=== PATIENT | female | born 1995 | race Caucasian/White ===

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

== ENCOUNTER 2017-02-28 12:32 | Emergency (ER) | payer BC ==
[2017-02-28 14:38] VITALS: BP 128/78
--- NOTE | 2017-02-28 15:10 | UC ---
Throat Pain/Nasal Franky HPI - HPI Summary HPI Summary: 21 year old female presents with complains of losing her voice and copious amounts of mucous. - History of Current Complaint Chief Complaint: UCGeneralIllness Stated Complaint: LOSING VOICE Time Seen by Provider: 02/28/17 15:09 Hx Obtained From: Patient Hx Last Menstrual Period: PRESENT Onset/Duration: Sudden Onset Severity: Moderate Pain Scale Used: 0-10 Numeric - 5 Cough: Nonproductive Associated Signs & Symptoms: Positive: Negative - Allergies/Home Medications Allergies/Adverse Reactions: Allergies Allergy/AdvReac Type Severity Reaction Status Date / Time No Known Allergies Allergy Verified 02/28/17 14:38 PMH/Surg Hx/FS Hx/Imm Hx Previously Healthy: Yes Other History Of: Negative For: HIV, Hepatitis B, Hepatitis C, Anticoagulant Therapy - Surgical History Surgical History: Yes Surgery Procedure, Year, and Place: Right Knee Arthroscopy Meniscus, 2015, [place] - Family History Known Family History: Positive: Hypertension, Diabetes Negative: Cardiac Disease - Social History Alcohol Use: None Substance Use Type: None Smoking Status (MU): Never Smoked Tobacco - Immunization History Most Recent Influenza Vaccination: NOT CURRENT Vaccination Up to Date: Yes Review of Systems Constitutional: Negative Skin: Negative Eyes: Negative ENT: Sore Throat, Nasal Discharge, Sinus Congestion, Sinus Pain/Tenderness Respiratory: Negative Cardiovascular: Negative Gastrointestinal: Negative Genitourinary: Negative Motor: Negative Neurovascular: Negative Musculoskeletal: Negative Neurological: Negative Psychological: Negative All Other Systems Reviewed And Are Negative: Yes Physical Exam Triage Information Reviewed: Yes Appearance: Well-Appearing Vital Signs: Initial Vital Signs Temp 36.9 C 02/28/17 14:35 Pulse 81 02/28/17 14:35 Resp 18 02/28/17 14:35 BP 128/78 02/28/17 14:35 Pulse Ox 100 02/28/17 14:35 Vital Signs Reviewed: Yes Eye Exam: Normal ENT: Positive: Pharyngeal erythema, Nasal congestion, Nasal drainage Dental Exam: Normal Neck exam: Normal Neck: Positive: 1 Respiratory Exam: Normal Cardiovascular Exam: Normal Abdominal Exam: Normal Musculoskeletal Exam: Normal Neurological Exam: Normal Psychological Exam: Normal Skin Exam: Normal Throat Pain/Nasal Course/Dx - Differential Dx/Diagnosis Provider Diagnoses: tonsillar swelling. post nasal drip Discharge - Discharge Plan Condition: Stable Disposition: HOME Referrals: Danielle Corbin MD [Primary Care Provider] -
== END 2017-02-28 16:13 | disposition home or self-care (01) ==
LOC: UCCORT 12:32
DX: J35.1 Hypertrophy of tonsils (principal); R09.82 Postnasal drip
CPT/HCPCS: 87651; 99212; G0463

== ENCOUNTER 2018-01-21 15:49 | Emergency (ER) | payer BC ==
[2018-01-21 17:26] VITALS: BP 136/74
[2018-01-21] MEDS ORDERED: Albuterol HFA INHALER* 8 gm MDI INH ONE (18:12)
--- NOTE | 2018-01-21 18:12 | UC ---
Throat Pain/Nasal Franky HPI - HPI Summary HPI Summary: sore thraot pain for 1 day, has a cough and is short of breath with activity - History of Current Complaint Chief Complaint: UCGeneralIllness Stated Complaint: SORE THROAT Time Seen by Provider: 01/21/18 17:06 Hx Obtained From: Patient Hx Last Menstrual Period: 12/28/17 Onset/Duration: Sudden Onset, Lasting Days Severity: Moderate Pain Intensity: 4 Cough: Nonproductive Associated Signs & Symptoms: Positive: Dysphagia, Wheezing - Allergies/Home Medications Allergies/Adverse Reactions: Allergies Allergy/AdvReac Type Severity Reaction Status Date / Time No Known Allergies Allergy Verified 01/21/18 17:26 PMH/Surg Hx/FS Hx/Imm Hx Previously Healthy: Yes Other History Of: Negative For: HIV, Hepatitis B, Hepatitis C, Anticoagulant Therapy - Surgical History Surgical History: Yes Surgery Procedure, Year, and Place: Right Knee Arthroscopy Meniscus, 2015, [place] - Family History Known Family History: Positive: Hypertension, Diabetes Negative: Cardiac Disease - Social History Alcohol Use: None Substance Use Type: None Smoking Status (MU): Never Smoked Tobacco - Immunization History Most Recent Influenza Vaccination: NOT CURRENT Vaccination Up to Date: Yes Review of Systems Constitutional: Negative Skin: Negative Eyes: Negative ENT: Sore Throat Respiratory: Shortness Of Breath Cardiovascular: Negative Gastrointestinal: Negative Genitourinary: Negative Motor: Negative Neurovascular: Negative Musculoskeletal: Negative Neurological: Negative Psychological: Negative Is Patient Immunocompromised?: No All Other Systems Reviewed And Are Negative: Yes Physical Exam Triage Information Reviewed: Yes Appearance: Well-Appearing, Well-Nourished, Pain Distress Vital Signs: Initial Vital Signs Temp 98.4 F 01/21/18 17:22 Pulse 100 01/21/18 17:22 Resp 18 01/21/18 17:22 BP 136/74 01/21/18 17:22 Pulse Ox 100 01/21/18 17:22 Vital Signs Reviewed: Yes Eye Exam: Normal ENT: Positive: Pharyngeal erythema - with PND, TM bulging Dental Exam: Normal Neck exam: Normal Neck: Positive: Supple, Nontender, No Lymphadenopathy Respiratory Exam: Normal Respiratory: Positive: Chest non-tender, Decreased breath sounds, Wheezing, Inspiration Cardiovascular Exam: Normal Cardiovascular: Positive: RRR, No Murmur Abdominal Exam: Normal Abdomen Description: Positive: Nontender, No Organomegaly, Soft Bowel Sounds: Positive: Present Musculoskeletal Exam: Normal Neurological Exam: Normal Psychological Exam: Normal Skin Exam: Normal Throat Pain/Nasal Course/Dx - Course Course Of Treatment: hx obtained, exam performed ,meds reviewed, rapid strep negative. educated on treatment - Differential Dx/Diagnosis Differential Diagnosis/HQI/PQRI: Otitis Media, Pharyngitis, Sinusitis, URI Provider Diagnoses: bronchospasm. sinusitis Discharge - Sign-Out/Discharge Documenting (check all that apply): Patient Departure All imaging exams completed and their final reports reviewed: Yes - Discharge Plan Condition: Stable Disposition: HOME Patient Education Materials: Acute Bronchitis (ED) Referrals: Danielle Corbin MD [Primary Care Provider] - Additional Instructions: 1. take the medication as prescribed. 2. get rest and increase plenty of fluid. 3. get an OTC generic Zyrtec or Claritin to take daily 4. Use the inhaler as needed. - Billing Disposition and Condition Condition: STABLE Disposition: Home
== END 2018-01-21 18:26 | disposition home or self-care (01) ==
LOC: UCCORT 15:49
DX: J98.01 Acute bronchospasm (principal); J32.9 Chronic sinusitis, unspecified
CPT/HCPCS: 87651; 99212; A9270-GY; G0463

== ENCOUNTER 2018-05-23 17:54 | Emergency (ER) | payer BC ==
[2018-05-23 20:35] VITALS: BP 124/71
--- NOTE | 2018-05-23 20:35 | UC ---
Ear Complaint HPI - HPI Summary HPI Summary: Progressive right ear pain and fullness, congestion, pnd no fever, chill, no rash Denies sob, mild cough + sick contact. No OTC meds taken. + po, decreased appetite. not . medications reviewed this visit - History of Current Complaint Stated Complaint: RT EAR COMPLAINT Time Seen by Provider: 05/23/18 20:35 Hx Obtained From: Patient Hx Last Menstrual Period: 12/28/17 - Allergies/Home Medications Allergies/Adverse Reactions: Allergies Allergy/AdvReac Type Severity Reaction Status Date / Time No Known Allergies Allergy Verified 05/23/18 20:35 Home Medications: Home Medications Ethinyl Estradiol/Drospirenone [Sherine 28 Tablet] 1 each PO DAILY 05/23/18 [ History Confirmed 05/23/18] PMH/Surg Hx/FS Hx/Imm Hx Previously Healthy: Yes Other History Of: Negative For: HIV, Hepatitis B, Hepatitis C, Anticoagulant Therapy - Surgical History Surgical History: Yes Surgery Procedure, Year, and Place: Right Knee Arthroscopy Meniscus, 2015, [place] - Family History Known Family History: Positive: Hypertension, Diabetes Negative: Cardiac Disease - Social History Occupation: Student Lives: Dormitory/Roommates Alcohol Use: None Substance Use Type: None Smoking Status (MU): Never Smoked Tobacco - Immunization History Most Recent Influenza Vaccination: NOT CURRENT Vaccination Up to Date: Yes Review of Systems All Other Systems Reviewed And Are Negative: Yes ENT: Positive: Ear Ache, Sinus Congestion, Sinus Pain/Tenderness Respiratory: Positive: Cough Physical Exam - Summary Physical Exam Summary: Vital Signs Reviewed: Yes A+Ox3, no distress Eyes: Conjunctiva Clear, ANJANA. EOM intact and full ENT: Hearing grossly normal right TM ++ fluid, erythema, buldgel left TM mild erythema turbinates inflammed and boggy. + PND, mmoist, uvula midline, no exudate, no erythema Neck: Positive: Supple Respiratory: Positive: No respiratory distress, No accessory muscle use + CTA throughout no w/r Cardiovascular: RRR nl s1, s2 no m/r CBT <2 sec abd soft + BS nt/nd no guarding, no distension Musculoskeletal Exam: BALDWIN x 4 without difficulty Strength Intact, ROM Intact Neurological: Positive: Alert, + sensation throughout Psychological: Positive: Normal Response To Family Skin: Positive: no rash, no ecchymosis Ear Complaint Course/Dx - Course Course Of Treatment: progressive sinus discomfort and right ear pain. VSS. pt with right OM and rhinosinusitis on exam. Rx abx, flonase. motrin/apa. decongestant. secretion precaution. humidify air. declined offer to talk to parent - Differential Dx/Diagnosis Provider Diagnosis: Otitis media, Sinusitis Discharge - Sign-Out/Discharge Documenting (check all that apply): Patient Departure All imaging exams completed and their final reports reviewed: No Studies - Discharge Plan Condition: Stable Disposition: HOME Prescriptions: Amoxicillin/Clavulanate TAB* [Augmentin TAB 875*] 875 mg PO BID #19 tab Fluconazole [Diflucan 150 MG (NF)] 150 mg PO ONCE PRN #1 tab PRN Reason: vaginal yeast infection Fluticasone NASAL SPRAY 50MCG* [Flonase NASAL SPRAY 50MCG*] 2 spray BOTH NARES DAILY #1 btl Patient Education Materials: Ear Infection (ED), Rhinosinusitis (ED) Referrals: Saloni Wise MD [Primary Care Provider] - Additional Instructions: - Stay well hydrated. Drink plenty of non-alcoholic, non-caffinated beverages. - Alternate ibuprofen (Advil, Motrin) 600mg and Tylenol every 3 hours for pain or fever. Take with food. Do NOT take for more than 4-5 days. - These infections are spread by secretions - do NOT share eating or drinking utensils - clean items you share with other people such as cell phones, computer mouse, TV remote, computer tablets,etc. Once you have been antibiotics for 2 days, change your toothbrush and your pillowcase. - get plenty of restful sleep - humidify the air in the room where you sleep - boil water, run a hot steam shower, vaporizer, cups of water by heat register - okay to take over the counter decongestant and cough medication - use nasal spray as prescribed - you have been prescribed diflucan - okay to take at the end of your antibiotics if you develop a vaginal yeast infection - contact your doctor or return with questions or concerns - Billing Disposition and Condition Condition: STABLE Disposition: Home
[2018-05-23] MEDS ORDERED: Amoxicillin/Clavulanate TAB* 875 MG PO ONE (20:55)
== END 2018-05-23 21:04 | disposition home or self-care (01) ==
LOC: UCCORT 17:54
DX: H66.91 Otitis media, unspecified, right ear (principal); J32.9 Chronic sinusitis, unspecified
CPT/HCPCS: 99212; A9270-GY; G0463

== ENCOUNTER 2018-11-30 17:09 | Emergency (ER) | payer BC ==
[2018-11-30 17:54] VITALS: BP 122/70
--- NOTE | 2018-11-30 17:57 | UC ---
Ear Complaint HPI - HPI Summary HPI Summary: 22-year-old female with bilateral earache and mild sore throat over the past 2 or 3 days. She denies any fever or chills. - History of Current Complaint Chief Complaint: UCRespiratory Stated Complaint: ST/EAR PAIN Time Seen by Provider: 11/30/18 17:45 Hx Obtained From: Patient Hx Last Menstrual Period: 11/12/18 ?: No Onset/Duration: Gradual Onset Severity Initially: Mild Severity Currently: Mild Pain Intensity: 7 Aggravating Factors: Nothing Alleviating Factors: Nothing Associated Signs/Symptoms: Positive: URI Symptoms - Allergies/Home Medications Allergies/Adverse Reactions: Allergies Allergy/AdvReac Type Severity Reaction Status Date / Time No Known Allergies Allergy Verified 11/30/18 17:51 Home Medications: Home Medications Etonogest/Eth.estradiol (Nf) [Nuvaring Vaginal Ring] 1 each VAGINAL .SEE COMMENTS 11/30/18 [History Confirmed 11/30/18] PMH/Surg Hx/FS Hx/Imm Hx Previously Healthy: Yes Other History Of: Negative For: HIV, Hepatitis B, Hepatitis C, Anticoagulant Therapy - Surgical History Surgical History: Yes Surgery Procedure, Year, and Place: Right Knee Arthroscopy Meniscus, 2016, [place] - Family History Known Family History: Positive: Hypertension, Diabetes Negative: Cardiac Disease - Social History Alcohol Use: None Substance Use Type: None Smoking Status (MU): Never Smoked Tobacco - Immunization History Most Recent Influenza Vaccination: NOT CURRENT Vaccination Up to Date: Yes Review of Systems All Other Systems Reviewed And Are Negative: Yes ENT: Positive: Sore Throat, Ear Ache, Nasal Discharge Is Patient Immunocompromised?: No Physical Exam Triage Information Reviewed: Yes Appearance: Well-Appearing, No Pain Distress, Well-Nourished Vital Signs: Initial Vital Signs Temp 99.2 F 11/30/18 17:49 Pulse 106 11/30/18 17:49 Resp 16 11/30/18 17:49 BP 122/70 11/30/18 17:49 Pulse Ox 100 11/30/18 17:49 Vital Signs Reviewed: Yes Eyes: Positive: Conjunctiva Clear ENT: Positive: Hearing grossly normal, Pharyngeal erythema - Minimal pharyngeal erythema, no exudate, uvula midline., Nasal drainage, TMs normal, Uvula midline Neck: Positive: Supple, Nontender, Enlarged Nodes @ - Mild left tonsillar lymph node enlargement. Respiratory: Positive: Lungs clear, Normal breath sounds, No respiratory distress, No accessory muscle use Cardiovascular: Positive: RRR, No Murmur, Pulses Normal, Brisk Capillary Refill Musculoskeletal Exam: Normal Neurological Exam: Normal Psychological Exam: Normal Skin Exam: Normal Ear Complaint Course/Dx - Course Course Of Treatment: Rapid strep test was negative. - Differential Dx/Diagnosis Provider Diagnosis: Pharyngitis Discharge - Sign-Out/Discharge Documenting (check all that apply): Patient Departure All imaging exams completed and their final reports reviewed: No Studies - Discharge Plan Condition: Good Disposition: HOME Patient Education Materials: Pharyngitis (ED) Referrals: Saloni Wise MD [Primary Care Provider] - Additional Instructions: Increase fluids, may take ibuprofen every 8 hours for pain, warm saltwater gargles, throat lozenges for comfort. Definite follow-up with your primary care provider in 3 or 4 days if no improvement. - Billing Disposition and Condition Condition: GOOD Disposition: Home
== END 2018-11-30 18:21 | disposition home or self-care (01) ==
LOC: UCCORT 17:09
DX: J06.9 Acute upper respiratory infection, unspecified (principal)
CPT/HCPCS: 87651; 99211; G0463

== ENCOUNTER 2019-01-21 17:40 | Emergency (ER) | payer BC ==
--- OUTSIDE RECORDS SUMMARY | 2019-01-21 17:47 | XMS REPORT | Continuity of Care Document ---
:1995 External Reference #:[id number] Author Name Saloni Wise MD, PHD Address [address] [place] [address], [address] [phone] Care Team Providers Name Role Phone Saloni Wise MD, PHD - Family Care Team Information Puller Through [phone] Medicine Problems Active Problems Provider Date Plica syndrome, right knee Hunter Petty M.D. Onset: 05/22/2015 Acne Saloni Wise MD, PHD Onset: 02/23/2018 Dysmenorrhea Saloni Wise MD, PHD Onset: 02/23/2018 Obesity Saloni Wise MD, PHD Onset: 02/23/2018 Social History Type Date Description Comments Sex Unknown Tobacco Use Start: Unknown Never Smoked Cigarettes Smoking Status Reviewed: 01/02/19 Never Smoked Cigarettes ETOH Use Never used alcohol Tobacco Use Start: Unknown Patient has never smoked Allergies, Adverse Reactions, Alerts Description No Known Drug Allergies Medications Active Medications SIG Qnty Indications Ordering Provider Date D3 Maximum Strength 1 cap by mouth 90caps F41.9 Saloni Wise, 2018 every day with , PHD 5000Unit Capsules food B12 Fast Dissolve 1 tab by mouth 90tabs F41.9 Saloni Wise, 01/02/2019 every day , PHD 5000mcg Tablets Dispers Nac 600 1 cap by mouth 90caps F41.9 Saloni Wise, 01/02/2019 600mg three times a day , PHD Capsules after meals Buspirone HCL 1 tab by mouth 90tabs F41.9 Saloni Wise, 01/02/2019 10mg three times a day , PHD Tablets after meals as needed for anxiety. Nuvaring use 1 ring 3units L70.0 Saloni Wise, 10/03/2018 vaginally every MD PHD 0.12-0.015mg/24HR month Ring Z30.09 N94.6 Aczone 7.5% Gel Unknown Immunizations CPT Code Status Date Vaccine Lot # [id number] Given 06/23/2015 Meningococcal Conjugate Vaccine Serogroups For [id number] Intramuscular Use 38717 Given 06/23/2015 Gardasil [id number] 31323 Given 12/10/2002 Poliovirus Vaccine Subcutaneous Or Intramuscular 93757 Given 12/10/2002 MMR Vaccine, Live, For Subcutaneous Use 06390 Given 12/10/2002 DTaP Vaccine Younger Than 7 20360 Given 12/01/2000 Pneumococcal Conjugate Vaccine 7 Valent For Intramuscular Use 24261 Given 04/21/2000 Varicella (Chicken Pox) Vaccine 00127 Given 10/06/1999 DTaP Vaccine Younger Than 7 32252 Given 10/06/1999 MMR Vaccine, Live, For Subcutaneous Use 27609 Given 10/06/1999 Poliovirus Vaccine Oral 98672 Given 10/06/1999 Hepatitis B & Hib Vaccine 04756 Given 06/30/1998 Hepatitis B Vaccine Pediatric/Adolescent 94347 Given 06/30/1998 DTP Toxoids & Hib Vaccine 44659 Given 04/30/1998 DTaP & Hib Vaccine 76012 Given 04/30/1998 Poliovirus Vaccine Oral 52494 Given 02/17/1998 Hepatitis B Vaccine Pediatric/Adolescent 54158 Given 02/17/1998 DTaP & Hib Vaccine 30366 Given 02/17/1998 Poliovirus Vaccine Oral Vital Signs Date Vital Result Comment 01/02/2019 11:52am BP Systolic Sitting Right Arm 128 mmHg BP Diastolic Sitting Right Arm 84 mmHg Body Temperature 98.9 F Heart Rate 97 /min Respiratory Rate 18 /min Height 65 inches 5'5" Weight 213.00 lb BMI (Body Mass Index) 35.4 kg/m2 BSA (Body Surface Area) 2.03 m2 [place] body weight in kilograms 57 kg O2 % BldC Oximetry 99 % 09/15/2018 10:44am BP Systolic 126 mmHg BP Diastolic 87 mmHg Body Temperature 98.5 F Heart Rate 87 /min Respiratory Rate 18 /min Height 65 inches 5'5" Weight 215.00 lb BMI (Body Mass Index) 35.8 kg/m2 BSA (Body Surface Area) 2.04 m2 [place] body weight in kilograms 57 kg O2 % BldC Oximetry 98 % Results Test Date Facility Test Result H/L Range Note Laboratory test [facility] Laboratory Rapid Strep Negative Negative 1 finding 9 [phone] Molecular Laboratory test [facility] Thyroid Stim 2.49 uIU/mL Normal 0.30-4.20 2 finding [address] [place] [address] [phone] Free T4 1.11 ng/dL Normal 0.76-1.46 CBC W/Automated 09/15/2018 [facility] White Blood 7.4 K/uL Normal 3.1-10.[address] [place] [address] [phone] Red Blood Count 4.92 M/uL Normal 3.90-5.40 Hemoglobin 14.9 gm/dL Normal 11.6-15.8 Hematocrit 43.4 % Normal 36.0-46.1 Mean Cell Volume 88.2 fl Normal 80.9-99.0 Mean Corpuscular HGB 30.3 pg Normal 25.9-32.7 Mean Corpuscular HGB Conc 34.3 g/dL Normal 30.8-34.3 Platelet Count 349 K/uL Normal 155-360 Red Cell Distri Width SD 38.8 fl Normal 36-47 Red Cell Distri Width %CV 12.0 % Normal 11.7-14.4 Mean Platelet Volume 10.6 fl Normal 8.9-12.4 Neut% 68.5 % High 28.0-68.0 Lymph % 23.8 % Normal 20.0-42.0 [place] % 5.1 % Normal 4.3-13.2 Eo% 1.7 % Normal 0.0-6.6 Bas% 0.5 % Normal 0.0-1.1 Immature Grans 0.4 % Normal 0.0-5.0 NRBC % 0.0 /100WBC < 10/ 100 WBC Neut# 5.09 K/uL Normal 1.8-7.0 Lymph # 1.77 K/uL Normal 1.0-4.0 [place] # 0.38 K/uL Normal 0.3-0.9 Eos # 0.13 K/uL Normal 0.0-0.5 Baso # 0.04 K/uL Normal 0.0-0.1 Immature Grans Absolute 0.03 K/uL NRBC # 0.00 K/uL Comprehensive Metabolic 09/15/2018 [facility] Glucose 68 mg/dL Low 74-[address] [place], [place] [id number] [phone] BUN 9 mg/dL Normal 7-18 Creatinine 0.9 mg/dL Normal 0.6-1.3 Glom Filtration Rate, Estimate >60 mL/min >60 If >60 mL/min >60 3 BUN/Creat 10.0 ratio Sodium 138 mmol/L Normal 136-145 Potassium 4.2 mmol/L Normal 3.5-5.1 Chloride 106 mmol/L Normal 98-107 Carbon Dioxide 23 mmol/L Normal 21-32 Anion Gap 9 mEq/L Normal 8-16 Calcium 9.5 mg/dL Normal 8.5-10.1 Total Protein 7.7 g/dL Normal 6.4-8.2 Albumin 3.8 g/dL Normal 3.4-5.0 Globulin 3.9 g/dL Normal 1.9-4.3 Alb/Glob 1.0 ratio Bilirubin,Total 0.5 mg/dL Normal 0.2-1.0 Sgot/Ast 22 U/L Normal 15-37 SGPT/Alt 36 U/L Normal 12-78 Alkaline Phosphatase 37 U/L Low 45-117 Laboratory test 09/15/2018 [facility] Sedimentation 7 mm/hr Normal 2-40 [address] Rate [place], [place] [id number] [phone] Glycohemoglobin 09/15/2018 [facility] Glycohemoglobin 5.1 % Normal 4.2-6. [address] (A1c) 3 [place], [place] [id number] [phone] eAG 100 mg/dL 1 Auto Brake Technician: [id number] N94.6, E66.9, K59.00, Z83.3 3 Note: Persistent reduction for 3 months or more in an eGFR <60 mL/min/1.73 m2 defines CKD. Patients with eGFR values >/=60 mL/min/1.73 m2 may also have CKD if evidence of persistent proteinuria is present. The original MDRD equation for estimated GFR is not valid for patients less than 18 years of age. Additional information may be found at www.kdoqi.org. 4 This result was obtained with an ESR method that is not based on the standard Westergren Method. When comparing results obtained from the traditional Westergren ESR and this method it is important to refer to the reference range for each method. Method: Capillary Photometry 5 Elevated levels of HbA1c suggest the need for more aggressive treatment of glycemia. The [place] [employer] recommends that a primary goal of therapy should be a HbA1c of <7% and that physicians should re-evaluate the treatment regimen in patients with HbA1c values consistently >8%. Procedures Description No Information Available Medical Devices Description No Information Available Encounters Type Date Location Provider Dx Diagnosis Office Visit 01/02/2019 Family Medicine Saloni Wise, F41.9 Anxiety disorder, 11:45a Paolo Chawla MD, PHD unspecified F41.0 Panic disorder [episodic paroxysmal anxiety] F34.1 Dysthymic disorder E66.9 Obesity, unspecified Office Visit 09/15/2018 10:30a Family Jorge Wise N94.6 Dysmenorrhea, Paolo Guallpa MD, unspecified PHD E66.9 Obesity, unspecified K59.00 Constipation, unspecified L60.3 Nail dystrophy Assessments Date Code Description Provider 01/02/2019 F41.9 Anxiety disorder, unspecified Saloni Wise MD, PHD 01/02/2019 F41.0 Panic disorder [episodic paroxysmal Saloni Wise MD, PHD anxiety] 01/02/2019 F34.1 Dysthymic disorder Saloni Wise MD, PHD 01/02/2019 E66.9 Obesity, unspecified Saloni Wise MD, PHD 09/15/2018 N94.6 Dysmenorrhea, unspecified Saloni Wise MD, PHD 09/15/2018 E66.9 Obesity, unspecified Saloni Wise MD, PHD 09/15/2018 K59.00 Constipation Saloni Wise MD, PHD 09/15/2018 L60.3 O/E - nails brittle Saloni Wise MD, PHD Plan of Treatment Future Appointment(s):02/02/2019 2:00 pm - [facility] PHD at [facility]01/02/2019 - Saloni Wise MD, PHDF41.9 Anxiety disorder, unspecifiedNew Medication:D3 Maximum Strength 5000 Unit - 1 cap by mouth every day with foodB12 Fast Dissolve 5000 mcg - 1 tab by mouth every dayNac 600 600 mg - 1 cap by mouth three times a day after mealsBuspirone HCL 10 mg - 1 tab by mouth three times a day after meals as needed for anxiety.Comments:To help lesson mood and anxiety with neutraceuticals - long-term, will take weeks to months to show an effect often: Vitamin D - likely deficient due to sanchez effect in [place]. Implicated in osteoporosis, osteopenia, fatigue, increased risk of diabetes, and depression/seasonal affective disorder. Recommend you take 4000 to 5000 IU of Vitamin D3 daily. Can check vitamin D25 level - takes year+ to replace deficiency. Can get capsule or gummy over the counter. Metamora 3 - essential fatty acid has a mild moodstabilizing effect. Good supplement for kids and aids brain development. Increases good cholesterol and helps clean plaque out of arteries, also has an anti-inflammatory effect for joints, skin, etc. recommend 1000mg of DHA +EPA daily - capsule or gummy over the counter. N- acetyl Cysteine - current studies show a an anti-agitation, improved clarity of thought effect. Biologically seems to reduce inflammation in nervous system. Studies show 1800mg to 2400mg daily safe. Improvements start at 3 weeks, continue to improve at 12 weeks of taking.Follow up:4 week follow up or sooner if needed. Call anytime for follow upF41.0 Panic disorder [episodic paroxysmal anxiety]Referral:No Doctor SvlukauwF60.1 Dysthymic disorderComments: Gastroenterology. 2017 Nov;153(2):448-459.e8. doi: 10.1053/ j.gastro.2017.05.003. Epub 2016August 20.Probiotic Bifidobacterium longum [id number] Reduces Depression Scores and Alters Brain Activity: A Second Officer Study in Patients With Irritable Bowel Syndrome.Bill MI1, Rodriguez GB2, Arie K2, Jody A1, Sangita C1, Juwan JT1, Rupesh FP3, Guillermina O3, Ranjit C1, Risun A2, John J2, Cordell C2, Grullon G1,Yonas M1, Alejandro AC4, Justyn J5, Katy B6, Holly G6, Raman MG1, Bob SM1, Sherly P1, Ishmael P7.Author informationAbstractBACKGROUND & AIMS: Probiotics can reduce symptoms of irritable bowel syndrome (IBS), but little is known about their effects on psychiatric comorbidities. We performed a prospective study to evaluate the effects of Bifidobacterium longum [id number] (BL) on anxiety and depression in patients with IBS.METHODS: We performed a randomized, double-blind, placebo- controlled study of 44 adults with IBS and diarrhea or a mixed-stool pattern ( based on Conner III criteria) and mild to moderate anxiety and/or depression ( based on the Hospital Anxiety and Depression scale) at [facility] in [place], from June 2010 to August 2013. At the screening visit, clinical history and symptoms were assessed and blood samples were collected. Patients were then randomly assigned to groups and given daily BL (n = 22) or placebo (n = 22) for 6 weeks. At weeks 0, 6, and 10, we determined patients' levels of anxiety and depression, IBS symptoms, quality of life, and somatization using validated questionnaires. At weeks 0 and 6, stool, urine and blood samples were collected , and functional magnetic resonance imaging (fMRI) test was performed. We assessed brain activation patterns, fecal microbiota, urine metabolome profiles , serum markers of inflammation, neurotransmitters, and neurotrophin levels.RESULTS: At week 6, 14 of 22 patients in the BL group had reduction in depression scores of 2 points or more on the Hospital Anxiety and Depression scale, vs 7 of 22 patients in the placebo group (P = .04). BL had no significant effect on anxiety or IBS symptoms. Patients in the BL group had a mean increase in quality of life score compared with the placebo group. The fMRI analysis showed that BL reduced responses to negative emotional stimuli in multiple brain areas, including amygdala and fronto-limbic regions, compared with placebo. The groups had similar fecal microbiota profiles, serum markers of inflammation, and levels of neurotrophins and neurotransmitters, but the BL group had reduced urine levels of methylamines and aromatic amino acids metabolites. At week 10, depression scores were reduced in patients given BL vs placebo.CONCLUSION: In a placebo-controlled trial, we found that the probiotic BL reduces depression but not anxiety scores and increases quality of life in patients with IBS. These improvements were associated with changes in brain activation patterns that indicate that this probiotic reduces limbic reactivity. ClinicalTrials.gov no. [id number].Follow up:4 week follow up or sooner if needed.E66.9 Obesity, unspecified Goals 01/02/2019 - Saloni Wise MD, PHDF41.9 Anxiety disorder, unspecifiedAction plan for overcoming depression Find a counselor you trust. Get 30 min of any type of exercise daily. Check out the Free Mio "Head Space" to help with meditation. Get 7-8 hours of sleep at night. Up your intake of essential omega 3 fatsThis means eating oily fish at least twice a week, seeds on most days and supplementing omega 3 fish oils. The best fish for EPA, the type of omega 3 fat that??s linked with improving mood, are: Mackerel (1,400mg per 100g/3oz), Rodriguez/kipper (1,000mg), Sardines (1,000mg),fresh tuna (900mg), Anchovy (900mg) , [place] (800mg),[place] (500mg). Tuna, being high inmercury is best eaten not more than three times a month. The best seeds are flax seeds and pumpkin seeds. Flax seeds are so small they are best ground and sprinkled on cereal. Alternatively, use flax seed oil, for example in salad dressings. While technically providing omega 3 only about 5% of the type of omega 3 (alpha linolenic acid) in these seeds is converted in your body into EPA. Metamora-3 seedsand seed oil should not be cooked. When supplementing omega 3 fish oils you are aiming for about 1,000mg of EPA a day for a mood boosting effect. That means supplementing a concentrated Metamora 3 Fish Oil capsule providing 500mg, once or twice a day and eating a serving of any of the above fish three times a week. Check your homocysteine level and get enough B vitaminsYour homocysteine level is an indicator of your B vitamin needs. , You can be tested through your GP or using a home test kit. If your level is above 9mmol/l take a combined ?? homocysteine?? supplement of B2, B6, B12, folic acid, zinc, and TMG, providing at least 400mcg of folic acid, 250mcg of B12 and 20mg of B6. If your homocysteine score is above 15mmol/l double this amount. Also eat B vitamin rich whole foods ?? whole grains, beans, nuts, seeds, fruits and vegetables. Folic acid is particularly rich in green vegetables, beans, lentils, nuts and seeds, while B12 is only found in animal foods ?? meat, fish, eggs and dairy produce. A good starting point is also to supplement a multivitamin providing optimal levels of B vitamins,which means 25mg-50mg of B1, B2, B3 (niacin), B5 ( pantothenic acid), B6 (pyridoxine) and at least 100mcg of folic acid and 10mcg of B12 and biotin. Consider supplementing the amino acid 5-HTPMost of the effective studies used 300mg of 5-HTP, however we ideally recommend testing if you are low in serotonin with a platelet serotonin test and starting with 100mg , or 50mg twice a day. If 5-HTP is not available, you could supplement the amino acid tryptophan in amounts of 500mg ?? 2g per day ?? again, we would suggest starting at the lower end. Tryptophan is best absorbed either on an empty stomach or,ideally, with a carbohydrate snack such as a piece of fruit or an oatcake. 5-HTP is well-absorbed with or without food. Also, make sure you eat enough protein from beans, lentils, nuts, seeds, fish, eggs and meat, which are all high in tryptophan. Do not take 5-HTP or tryptophan if you are currently taking an anti-depressant without your doctor??s permission. Avoid or reduce caffeine, sugar, refinedcarbohydrates and alcoholEat a diet that will stabilise your blood sugar (known as the Low GL diet).The emmanuel points are: Only eat low GL carbohydrates; Always combine your low GL carbohydrates with protein in a ratio of 1:1; Eat at regular intervals, including snacks that include low GL carbohydrate and protein such as fresh fruit with a handful of nuts, oatcakes with homous or celery and cottage cheese; Only eat sweet foods as a very occasional treat and only after a meal or healthy snack. To really get to treatment counselor with this type of eating plan, we highly recommend Chandu Gee? ?s Low GL Dietbook. Consider supplementing chromiumIf you suffer from ?? atypical depression?? (see above) studiesshow that 600mcg of chromium a day is effective. Supplements generally come in 200mcg pills. Take two with breakfast and one with lunch. If this works, after a month reduce to one with breakfast and one with lunch. If this works, reduce to one with breakfast after a further month. Don??t take chromiumin the evening as it can be stimulating. In addition to supplementing chromium, you should adopt the low GL Diet style of eating as outlined above. Have a vitamin D testAsk your GP or nutritional therapist for a vitamin D test. If your level is below 75 nmol/litre, supplement 2,000 iu per day for 12weeks, and then get a retest. Get some sensible sun exposure, without sun-block, but don??t risk your skin health by allowing yourself to get sunburned! Investigate food intolerancesYou may suspect some foods which may or may not be one of the usual suspects - are gluten (wheat, rye, barley), wheat,dairy (all types ?? cow, sheep, goat, milk, cheese, cream etc), soya, yeast and eggs. If this is thecase, you could try an exclusion of the food or foods for a brief trial period. Alternatively, you could undertake an IgG MANDY blood test to determine whether you have raised antibody levels to specific foods in your blood which is a good indication. Either way, don??t make dramatic changes to your diet or cut out whole food groups without professional guidance to ensure your diet remains healthy and balanced ?? this is especially important for the frail and for children. Finding helpF34.1 Dysthymic disorderAction plan for overcoming depression Find a counselor you trust. Get 30 min of any type of exercise daily. Check out the Free Mio "Head Space" to help with meditation. Get 7-8 hours of sleep at night. Up your intake of essential omega 3 fatsThis means eating oily fish at least twice a week, seeds on most days and supplementing omega 3 fish oils. The best fish for EPA, the type of omega 3 fat that??s linked with improving mood, are: Mackerel (1,400mg per 100g/3oz), Rodriguez/kipper (1,000mg), Sardines (1,000mg), fresh tuna (900mg), Anchovy (900mg), [place] (800mg),[place] (500mg). Tuna, being high inmercury is best eaten not more than three times a month. The best seeds are flax seeds and pumpkin seeds. Flax seeds are so small they are best ground and sprinkled on cereal. Alternatively, use flax seed oil, for example in salad dressings. While technically providing omega 3 only about 5% of the type of omega 3 (alpha linolenic acid) in these seeds is converted in your body into EPA. Metamora-3 seedsand seed oil should not be cooked. When supplementing omega 3 fish oils you are aiming for about 1,000mg of EPA a day for a mood boosting effect. That means supplementing a concentrated Metamora 3 Fish Oil capsule providing 500mg, once or twice a day and eating a serving of any of the above fish three times a week. Check your homocysteine level and get enough B vitaminsYour homocysteine level is an indicator of your B vitamin needs. , You can be tested through your GP or using a home test kit. If your level is above 9mmol/l take a combined ??homocysteine?? supplement of B2, B6, B12, folic acid, zinc, and TMG, providing at least 400mcg of folic acid, 250mcg of B12 and 20mg of B6. If your homocysteine score is above 15mmol/l double this amount. Also eat B vitamin rich whole foods ?? whole grains, beans, nuts, seeds, fruits and vegetables. Folic acid is particularly rich in green vegetables, beans, lentils , nuts and seeds, while B12 is only found in animal foods ?? meat, fish, eggs and dairy produce. A good starting point is also to supplement a multivitamin providing optimal levels of B vitamins,which means 25mg-50mg of B1, B2, B3 ( niacin), B5 (pantothenic acid), B6 (pyridoxine) and at least 100mcg of folic acid and 10mcg of B12 and biotin. Consider supplementing the amino acid 5- HTPMost of the effective studies used 300mg of 5-HTP, however we ideally recommend testing if you are low in serotonin with a platelet serotonin test and starting with 100mg, or 50mg twice a day. If 5-HTP is not available, you could supplement the amino acid tryptophan in amounts of 500mg ?? 2g per day ?? again, we would suggest starting at the lower end. Tryptophan is best absorbed either on an empty stomach or,ideally, with a carbohydrate snack such as a piece of fruit or an oatcake. 5-HTP is well-absorbed with or without food. Also , make sure you eat enough protein from beans, lentils, nuts, seeds, fish, eggs and meat, which are all high in tryptophan. Do not take 5-HTP or tryptophan if you are currently taking an anti-depressant without your doctor??s permission. Avoid or reduce caffeine, sugar, refinedcarbohydrates and alcoholEat a diet that will stabilise your blood sugar (known as the Low GL diet).The emmanuel points are: Only eat low GL carbohydrates; Always combine your low GL carbohydrates with protein in a ratio of 1:1; Eat at regular intervals, including snacks that include low GL carbohydrate and protein such as fresh fruit with a handful of nuts, oatcakes with homous or celery and cottage cheese; Only eat sweet foods as a very occasional treat and only after a meal or healthy snack. To really get to treatment counselor with this type of eating plan, we highly recommend Chandu Gee??s Low GL Dietbook. Consider supplementing chromiumIf you suffer from ? ?atypical depression?? (see above) studiesshow that 600mcg of chromium a day is effective. Supplements generally come in 200mcg pills. Take two with breakfast and one with lunch. If this works, after a month reduce to one with breakfast and one with lunch. If this works, reduce to one with breakfast after a further month. Don??t take chromiumin the evening as it can be stimulating. In addition to supplementing chromium, you should adopt the low GL Diet style of eating as outlined above. Have a vitamin D testAsk your GP or nutritional therapist for a vitamin D test. If your level is below 75 nmol/litre, supplement 2,000 iu per day for 12weeks, and then get a retest. Get some sensible sun exposure, without sun-block, but don??t risk your skin health by allowing yourself to get sunburned! Investigate food intolerancesYou may suspect some foods which may or may not be one of the usual suspects - are gluten (wheat, rye, barley), wheat,dairy (all types ?? cow, sheep, goat, milk, cheese, cream etc), soya, yeast and eggs. If this is thecase, you could try an exclusion of the food or foods for a brief trial period. Alternatively, you could undertake an IgG MANDY blood test to determine whether you have raised antibody levels to specific foods in your blood which is a good indication. Either way, don??t make dramatic changes to your diet or cut out whole food groups without professional guidance to ensure your diet remains healthy and balanced ?? this is especially important for the frail and for children. Finding help Functional Status Functional Condition Comment Date Status Glasses Active Mental Status Description No Information Available Referrals Refer to Reason for Referral Status Appt Date [address] [address] Created
[2019-01-21 17:56] VITALS: BP 122/85
--- NOTE | 2019-01-21 18:10 | UC ---
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 Persistent pain in left elbow with movement along with ecchymosis of the forearm. Mild swelling in the hand. No numbness or tingling. Used acetaminophen for control of pain. - History of Current Complaint Chief Complaint: UCUpperExtremity Stated Complaint: L ARM INJ Time Seen by Provider: 01/21/19 18:03 Hx Obtained From: Patient Hx Last Menstrual Period: nuvaring Onset/Duration: Sudden Onset, Lasting Days - 1 Severity Initially: Moderate Severity Currently: Moderate Pain Intensity: 5 Location Of Pain: Is Discrete @ - left elbow and forearm. Character: Aching, Stiffness Aggravating Factor(s): Movement, Lifting Alleviating Factor(s): OTC Meds Associated Signs And Symptoms: Positive: Swelling, Bruising. Negative: Numbness /Tingling Related History: Dominant Hand Right - Risk Factors Non-Orthopedic Risk Factor: Negative DVT Risk Factors: Negative Septic Arthritis Risk Factor: Negative - Allergies/Home Medications Allergies/Adverse Reactions: Allergies Allergy/AdvReac Type Severity Reaction Status Date / Time No Known Allergies Allergy Verified 01/21/19 17:50 Home Medications: Home Medications Acetaminophen TAB* [Tylenol TAB*] 650 mg PO Q4H PRN 01/21/19 [History Confirmed 01/21/19] busPIRone TAB* [Buspar TAB*] 10 mg PO DAILY 01/21/19 [History Confirmed 01/21/19 ] PMH/Surg Hx/FS Hx/Imm Hx Previously Healthy: Yes Psychological History: Anxiety Other History Of: Negative For: HIV, Hepatitis B, Hepatitis C, Anticoagulant Therapy - Surgical History Surgical History: Yes Surgery Procedure, Year, and Place: Right Knee Arthroscopy Meniscus, 2016, [place] - Family History Known Family History: Positive: Hypertension, Diabetes, Renal Disease - father has ESRD due to diabetes Negative: Cardiac Disease - Social History Occupation: Employed Full-time Lives: With Family Alcohol Use: Occasionally Substance Use Type: None Smoking Status (MU): Never Smoked Tobacco - Immunization History Most Recent Influenza Vaccination: NOT CURRENT Vaccination Up to Date: Yes Review of Systems All Other Systems Reviewed And Are Negative: Yes Constitutional: Positive: Negative Skin: Positive: Negative Eyes: Positive: Negative ENT: Positive: Negative Musculoskeletal: Positive: Arthralgia, Myalgia Is Patient Immunocompromised?: No Physical Exam Triage Information Reviewed: Yes Appearance: Well-Appearing, Pain Distress - mild, Obese Vital Signs: Initial Vital Signs Temp 96.7 F 01/21/19 17:53 Pulse 99 01/21/19 17:53 Resp 20 01/21/19 17:53 BP 122/85 01/21/19 17:53 Pulse Ox 100 01/21/19 17:53 ENT: Positive: Normal ENT inspection Dental Exam: Normal Neck: Positive: Supple, Nontender, No Lymphadenopathy Respiratory: Positive: Lungs clear, Normal breath sounds Cardiovascular: Positive: RRR, No Murmur Musculoskeletal Exam: Other - intact clavicle, passive rom in shoulder is ok. No elbow effusion or swelling. Pain with extension of left elbow. Ecchymosis approx 5-6 cm along ulner border inferior to the elbow. Musculoskeletal: Positive: ROM Limited @ - left elbow, Other: - normal supination and pronation of the left elbow. Very mild hand swelling, full rom in the wrist. Normal pulses and sensation and digital movement. Neurological: Positive: Alert, Muscle Tone Normal Psychological Exam: Normal Skin Exam: Normal Diagnostics - Radiology No standard instances Radiology Interpretation Completed By: ED Physician Summary of Radiographic Findings: normal bony alignment, no fracture seen, do no appreciate an effusion or fat pad displacement. Upper Extremity Course/Dx - Course Course Of Treatment: Sling, await radiology read. Use ibuprofen and ice for comfort. Follow up with ortho if pain persists. - Differential Dx/Diagnosis Provider Diagnosis: Elbow contusion Discharge ED - Sign-Out/Discharge Documenting (check all that apply): Patient Departure All imaging exams completed and their final reports reviewed: No - Discharge Plan Condition: Stable Disposition: HOME Patient Education Materials: Contusion in Adults (ED) Referrals: Saloni Wise MD [Primary Care Provider] - Additional Instructions: Continue to use ice for relief of swelling and bruising. Use sling to support the arm; the radiologist will review your xray in the morning and you will be called if a fracture is seen which I did not appreciate. Follow up with orthopedics if you continue to have pain or restricted movement in the elbow. - Billing Disposition and Condition Condition: STABLE Disposition: Home
--- NOTE | 2019-01-22 13:15 | UC ---
- Progress Note Progress Note: Final radiologist reading of left elbow x-ray from January 21, 2019 is back as no fracture. Provider interpretation same date is the same therefore there is no discrepancy. Course/Dx - Diagnoses Provider Diagnoses: Elbow contusion Discharge ED - Sign-Out/Discharge Documenting (check all that apply): Patient Departure All imaging exams completed and their final reports reviewed: Yes - Discharge Plan Condition: Stable Disposition: HOME Patient Education Materials: Contusion in Adults (ED) Referrals: Jonathan Escalera MD [Medical Doctor] - Saloni Wise MD [Primary Care Provider] - Additional Instructions: Continue to use ice for relief of swelling and bruising. Use sling to support the arm; the radiologist will review your xray in the morning and you will be called if a fracture is seen which I did not appreciate. Follow up with orthopedics if you continue to have pain or restricted movement in the elbow. - Billing Disposition and Condition Condition: STABLE Disposition: Home
== END 2019-01-21 18:40 | disposition home or self-care (01) ==
LOC: UCCORT 17:40
DX: S50.02XA Contusion of left elbow, initial encounter (principal); F41.9 Anxiety disorder, unspecified; W10.9XXA Fall (on) (from) unspecified stairs and steps, initial encounter; Y92.9 Unspecified place or not applicable; Z79.899 Other long term (current) drug therapy
CPT/HCPCS: 99212; G0463

== ENCOUNTER 2019-05-16 17:38 | Emergency (ER) | payer BC ==
--- OUTSIDE RECORDS SUMMARY | 2019-05-16 17:44 | XMS REPORT | Continuity of Care Document ---
:1995 External Reference #:[id number] Author Name Saloni Wise MD, PHD Address [address] [place] [address], [address] [place] [id number] Care Team Providers Name Role Phone Saloni Wise MD, PHD - Family Care Team Information Tier In Medicine Problems Active Problems Provider Date Plica syndrome, right knee Hunter Petty M.D. Onset: 05/22/2015 Acne Saloni Wise MD, PHD Onset: 02/23/2018 Dysmenorrhea Saloni Wise MD, PHD Onset: 02/23/2018 Obesity Saloni Wise MD, PHD Onset: 02/23/2018 Social History Type Date Description Comments Sex Unknown Tobacco Use Start: Unknown Never Smoked Cigarettes Smoking Status Reviewed: 04/19/19 Never Smoked Cigarettes ETOH Use Negative For < 10 rarely drinks alcohol ETOH Use Recreational drug use No recreational drug use Tobacco Use Start: Unknown Patient has never [...] , PHD Capsules after meals Buspirone HCL Take One Tablet By 90tabs F41.9 Saloni Wise, 01/02/2019 10mg Mouth In The Am , PHD Tablets And AT Lunch And Two Tabs AT Bedtime After Meals as Needed For Anxiety Nuvaring use 1 ring 3units L70.0 Katlyn Yang, 10/03/2018 vaginally every DEPARTMENT EDITOR 0.12-0.015mg/24HR month Ring Z30.09 N94.6 Aczone 7.5% Gel Unknown History Medications Drospirenone-Ethinyl Take One 84tabs Saloni Wise, 01/05/2019 - Estradiol Tablet By , PHD 02/02/2019 3-0.02mg Tablets Mouth Every Day Immunizations CPT Code Status Date Vaccine Lot # [id number] Given 03/29/2019 Tdap injection [id number] 37938 Given 02/02/2019 Influenza Virus Vaccine, Quadrivalent, 36 Mos+, .5ML 72622 Given 06/23/2015 Meningococcal Conjugate Vaccine Serogroups For [id number] Intramuscular Use 80984 Given 06/23/2015 Gardasil [id number] 74367 Given 12/10/2002 Poliovirus Vaccine Subcutaneous Or Intramuscular 15524 Given 12/10/2002 MMR Vaccine, Live, For Subcutaneous Use 93857 Given 12/10/2002 DTaP Vaccine Younger Than 7 16748 Given 12/01/2000 Pneumococcal Conjugate Vaccine 7 Valent For Intramuscular Use 81176 Given 04/21/2000 Varicella (Chicken Pox) Vaccine 16357 Given 10/06/1999 DTaP Vaccine Younger Than 7 32548 Given 10/06/1999 MMR Vaccine, Live, For Subcutaneous Use 60020 Given 10/06/1999 Poliovirus Vaccine Oral 08376 Given 10/06/1999 Hepatitis B & Hib Vaccine 47887 Given 06/30/1998 Hepatitis B Vaccine Pediatric/Adolescent 90394 Given 06/30/1998 DTP Toxoids & Hib Vaccine 73243 Given 04/30/1998 DTaP & Hib Vaccine 85780 Given 04/30/1998 Poliovirus Vaccine Oral 94313 Given 02/17/1998 Hepatitis B Vaccine Pediatric/Adolescent 61204 Given 02/17/1998 DTaP & Hib Vaccine 88166 Given 02/17/1998 Poliovirus Vaccine Oral Vital Signs Date Vital Result Comment 04/19/2019 3:02pm BP Systolic 129 mmHg BP Diastolic 86 mmHg Body Temperature 99.1 F Heart Rate 100 /min Respiratory Rate 18 /min Height 65 inches 5'5" Weight 215.00 lb BMI (Body Mass Index) 35.8 kg/m2 BSA (Body Surface Area) 2.04 m2 Grant body weight in kilograms 57 kg O2 % BldC Oximetry 97 % 03/29/2019 9:00am BP Systolic 132 mmHg BP Diastolic 84 mmHg Body Temperature 98.0 F Heart Rate 88 /min Respiratory Rate 16 /min Height 65 inches 5'5" Weight 213.00 lb BMI (Body Mass Index) 35.4 kg/m2 BSA (Body Surface Area) 2.03 m2 Grant body weight in kilograms 57 kg O2 % BldC Oximetry 98 % Results Test Acquired Date Facility Test Result H/L Range Note Genital Culture 03/29/2019 [facility] Gram Stain GRAM STAIN 1, 2 W/ Gram Stain [address] [facility] [address] <[place] [address] NOTE> [phone] Gram Stain MANY GR POS. TELMA <SEE NOTE> 3 Gram Stain FEW WHITE BLOOD <SEE NOTE> 4 Genital Culture GENITAL ANTONETTE Chlmaydia/GC/Trichomonas 03/29/2019 [facility] Chlamydia Negative Negative PCR [address] [facility] [address] trachomatis, [place] [address] PCR [phone] Neisseria gonorrhoeae, PCR Negative Negative 5 Trichomonas vaginalis PCR Negative Negative Specimen Type: Genital Igp, Aptima HPV 03/29/2019 [facility] Diagnosis: See Comment: 6 [address] [facility] [address] [place] [address] [phone] Specimen adequacy: See Comment: 7 Performed by: See Comment: 8 QC reviewed by: See Comment: 9 . . Note: See Comment: 10 Test Methodology: See Comment: 11 HPV Aptima Negative Negative 12 Laboratory 03/29/2019 [facility] PDF SEE IMAGE test finding [address] [facility] [id number] [place] [address] [phone] Laboratory 11/30/2018 [facility] Laboratory Rapid Strep Negative Negative 13 test finding [phone] Molecular 1 Z01.419 2 GRAM STAIN INDICATES NORMAL GENITAL ANTONETTE 3 MANY GR POS. BACILLI SUGGESTIVE OF LACTOBACILLUS SP. 4 FEW WHITE BLOOD CELLS 5 A negative result for either C. trachomatis and/or N. gonorrhoeae does not preclued an infection because results are dependent on adequate specimen collection, absence of inhibitors, and sufficient DNA to be detected. 6 UNSATISFACTORY FOR EVALUATION. 7 Specimen processed and examined, but unsatisfactory for evaluation of epithelial abnormality because of lubricant. 8 Roopa Delgado, Air Brake Rigger (ASCP) 9 Susan Mcclain, Air Brake Rigger (ASCP) 10 The Pap smear is a screening test designed to aid in the detection of premalignant and malignant conditions of the uterine cervix. It is not a diagnostic procedure and should not be used as the sole means of detecting cervical cancer. Both false-positive and false-negative reports do occur. 11 This liquid based ThinPrep(R) pap test was screened with the use of an image guided system. 12 This nucleic acid amplification test detects fourteen high-risk HPV types (16,18,31,33,35,39,45,51,52,56,58,59,66,68) without differentiation. 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 [facility] DEPARTMENT EDITOR exam (general) (routine) w/o abn findings F41.9 Anxiety disorder, unspecified H92.01 Otalgia, right ear M25.461 Effusion, right knee Z23 Encounter for immunization Office Visit 02/02/2019 2:00p [employer] Jorge Wise F41.9 Anxiety disorder, Paolo Guallpa MD, unspecified PHD Office Visit 01/02/2019 11:45a Family Jorge Wise F41.Jalen Anxiety disorder, Paolo Guallpa MD, unspecified PHD F41.0 Panic disorder [episodic paroxysmal anxiety] F34.1 Dysthymic disorder E66.9 Obesity, unspecified Assessments Date Code Description Provider 04/19/2019 A08.19 Acute gastroenteropathy due to other Saloni Wise MD, PHD small round viruses 03/29/2019 Z01.419 Encounter for gynecological examination Katlyn Yang FNP (general) (routine) without abnormal findings 03/29/2019 F41.9 Anxiety disorder, unspecified Katlyn Yang DEPARTMENT EDITOR 03/29/2019 H92.01 Otalgia, right ear Katlyn Yang, [facility] 03/29/2019 M25.461 Effusion, right knee Katlyn Yang, [facility] 03/29/2019 Z23 Encounter for immunization Katlyn Yang, [facility] 02/02/2019 F41.9 Anxiety disorder, unspecified Katlyn Yang, DEPARTMENT EDITOR 02/02/2019 F41.9 Anxiety disorder, unspecified Saloni Wise MD, PHD 01/02/2019 F41.9 Anxiety disorder, unspecified Saloni Wise MD, PHD 01/02/2019 F41.0 Panic disorder [episodic paroxysmal Saloni Wise MD, PHD anxiety] 01/02/2019 F34.1 Dysthymic disorder Saloni Wise MD, PHD 01/02/2019 E66.9 Obesity, unspecified Saloni Wise MD, PHD Plan of Treatment Future Appointment(s):03/31/2020 9:00 am - Katlyn Yang, [facility] at [facility]04/19/2019 - Saloni Wise MD, PHDA08.19 Acute gastroenteropathy due to other small round virusesComments:Replace fluids and electrolytes. Rest. You are contagious. Note to stay home from work 48 hours. Functional Status Functional Condition Comment Date Status Glasses Active Mental Status Description No Information Available Referrals Refer to Reason for Referral Status Appt Date [address] [address] Closed [email or web address]
--- OUTSIDE RECORDS SUMMARY | 2019-05-16 17:44 | XMS REPORT | Continuity of Care Document ---
:1995 External Reference #:[id number] Author Name Katlyn Yang NURSE [place]ALE[employer] (transmitted by agent of provider Saloni Wise) Address [address] [place] [address] Care Team Providers Name Role Phone Saloni Wise MD, PHD - Family Care Team Information Material Handling Technician Medicine Problems Active Problems Provider Date Plica syndrome, right knee Hunter Petty M.D. Onset: 05/22/2015 Acne Saloni Wise MD, PHD Onset: 02/23/2018 Dysmenorrhea Saloni Wise MD, PHD Onset: 02/23/2018 Obesity Saloni Wise MD, PHD Onset: 02/23/2018 Social History Type Date Description Comments Sex Unknown Tobacco Use Start: Unknown Never Smoked Cigarettes Smoking Status Reviewed: 03/29/19 Never Smoked Cigarettes ETOH Use Negative For [...] 3units L70.0 Katlyn Yang, 10/03/2018 vaginally every NURSE [employer]ALEGAL 0.12-0.015mg/24HR month Ring Z30.09 N94.6 Aczone 7.5% Gel Unknown History Medications Drospirenone-Ethinyl Take One 84tabs Saloni Wise, 01/05/2019 - Estradiol Tablet By , PHD 02/02/2019 3-0.02mg Tablets Mouth Every Day Immunizations CPT Code Status Date Vaccine Lot # [id number] Given 03/29/2019 Tdap injection [id number] 03131 Given 02/02/2019 Influenza Virus Vaccine, Quadrivalent, 36 Mos+, .5ML 29239 Given 06/23/2015 Meningococcal Conjugate Vaccine Serogroups For [id number] Intramuscular Use 79390 Given 06/23/2015 Gardasil [id number] 82141 Given 12/10/2002 Poliovirus Vaccine Subcutaneous Or Intramuscular 95465 Given 12/10/2002 MMR Vaccine, Live, For Subcutaneous Use 70389 Given 12/10/2002 DTaP Vaccine Younger Than 7 45731 Given 12/01/2000 Pneumococcal Conjugate Vaccine 7 Valent For Intramuscular Use 68875 Given 04/21/2000 Varicella (Chicken Pox) Vaccine 25794 Given 10/06/1999 DTaP Vaccine Younger Than 7 07004 Given 10/06/1999 MMR Vaccine, Live, For Subcutaneous Use 94197 Given 10/06/1999 Poliovirus Vaccine Oral 80286 Given 10/06/1999 Hepatitis B & Hib Vaccine 93421 Given 06/30/1998 Hepatitis B Vaccine Pediatric/Adolescent 30437 Given 06/30/1998 DTP Toxoids & Hib Vaccine 36861 Given 04/30/1998 DTaP & Hib Vaccine 43343 Given 04/30/1998 Poliovirus Vaccine Oral 22755 Given 02/17/1998 Hepatitis B Vaccine Pediatric/Adolescent 72705 Given 02/17/1998 DTaP & Hib Vaccine 34285 Given 02/17/1998 Poliovirus Vaccine Oral Vital Signs Date Vital Result Comment 03/29/2019 9:00am BP Systolic 132 mmHg BP Diastolic 84 mmHg Body Temperature 98.0 F Heart Rate 88 /min Respiratory Rate 16 /min Height 65 inches 5'5" Weight 213.00 lb BMI (Body Mass Index) 35.4 kg/m2 BSA (Body Surface Area) 2.03 m2 [place] body weight in kilograms 57 kg O2 % BldC Oximetry 98 % 02/02/2019 1:55pm BP Systolic 138 mmHg BP Diastolic 90 mmHg Body Temperature 98.6 F Heart Rate 107 /min Respiratory Rate 14 /min Height 65 inches 5'5" Weight 216.00 lb BMI (Body Mass Index) 35.9 kg/m2 BSA (Body Surface Area) 2.04 m2 [place] body weight in kilograms 57 kg O2 % BldC Oximetry 98 % Results Test Acquired Date Facility Test Result H/L Range Note Laboratory test 11/30/2018 [facility] Rapid Strep Negative Negative 1 finding [phone] Molecular 1 Medical Appointment Clerk: [id number] Procedures Description No Information Available Medical Devices Description No Information Available Encounters Type Date Location Provider Dx Diagnosis Office Visit 02/02/2019 Family Medicine Saloni Wise, F41.9 Anxiety disorder, 2:00p Paolo Chawla MD, PHD unspecified Office Visit 01/02/2019 Family Medicine Saloni Wise F41.9 Anxiety disorder, 11:45a Paolo Chawla MD, PHD unspecified F41.0 Panic disorder [episodic paroxysmal anxiety] F34.1 Dysthymic disorder E66.9 Obesity, unspecified Assessments Date Code Description Provider 03/29/2019 Z01.419 Encounter for gynecological examination Katlyn Yang, PERRY (general) (routine) without abnormal findings 03/29/2019 F41.9 Anxiety disorder, unspecified Katlyn Yang, [facility] 03/29/2019 H92.01 Otalgia, right ear Katlyn Yang, NURSE PARALEGAL 03/29/2019 M25.461 Effusion, right knee Katlyn Yang, PERRY 02/02/2019 F41.9 Anxiety disorder, unspecified Katlyn Yang, NURSE [employer]GAL 02/02/2019 F41.9 Anxiety disorder, unspecified Saloni Wise MD, PHD 01/02/2019 F41.9 Anxiety disorder, unspecified Saloni Wise MD, PHD 01/02/2019 F41.0 Panic disorder [episodic paroxysmal Saloni Wise MD, PHD anxiety] 01/02/2019 F34.1 Dysthymic disorder Saloni Wise MD, PHD 01/02/2019 E66.9 Obesity, unspecified Saloni Wise MD, PHD Plan of Treatment Future Appointment(s):03/31/2020 9:00 am - Katlyn Yang, NURSE [facility]ALEGAL at [facility]03/29/2019 - Katlyn Yang, FNPZ01.419 Encounter for gynecological examination (general) (routine) without abnormal findingsComments: -I will notify you when the PAP and culture results come backFollow up:Follow up for test results, as needed, or in 1 year.F41.9 Anxiety disorder, unspecifiedComments:-You state doing well overall with only a few times of depression flaring up-We increased the Buspirone to once in the AM, once after lunch if needed and 2 tabs at bed time.-Follow up at any time if foutrpQ44.01 Otalgia, right earComments:-Ears look great today, no signs of infection or fluid-If the fullness and popping returns, try an OTC decongestant-If you experience pain, call and be seenM25.461 Effusion, right kneeComments:-You stated you will be following up with [facility] on 04/13/19 and will be scheduling a scoping procedureof the knee. -In the meantime, continue with the compression socks, compression of the knee with anace wrap when needed, elevate when swollen and use ice to reduce swellingAllComments:-Refill on the Nuvaring sent in today Functional Status Functional Condition Comment Date Status Glasses Active Mental Status Description No Information Available Referrals Refer to Reason for Referral Status Appt Date [address] [address] Closed [email or web address]
[2019-05-16 17:58] VITALS: BP 131/84
--- NOTE | 2019-05-16 18:47 | UC ---
Throat Pain/Nasal Franky HPI - HPI Summary HPI Summary: 23 year old female with no PMH presents with 3 days nasal congestion, pressure, fatigue, body aches, L sided ear pain. denies fever, chills. works in derm office. no GI symptoms. no recent antibiotics. - History of Current Complaint Chief Complaint: UCRespiratory Stated Complaint: BILATERAL EAR PAIN Time Seen by Provider: 05/16/19 18:28 Hx Obtained From: Patient Hx Last Menstrual Period: 04/24/19 ?: No Onset/Duration: Sudden Onset Severity: Moderate Pain Intensity: 5 Pain Scale Used: 0-10 Numeric Cough: Productive Associated Signs & Symptoms: Positive: Dysphagia, Hoarseness, Sinus Discomfort, Nasal Discharge. Negative: Fever, Vomiting - Allergies/Home Medications Allergies/Adverse Reactions: Allergies Allergy/AdvReac Type Severity Reaction Status Date / Time No Known Allergies Allergy Verified 05/16/19 17:55 PMH/Surg Hx/FS Hx/Imm Hx Previously Healthy: Yes Other History Of: Negative For: HIV, Hepatitis B, Hepatitis C, Anticoagulant Therapy - Surgical History Surgical History: Yes Surgery Procedure, Year, and Place: Right Knee Arthroscopy Meniscus, 2016, [place] - Family History Known Family History: Positive: Hypertension, Diabetes, Renal Disease - father has ESRD due to diabetes Negative: Cardiac Disease - Social History Occupation: Student Alcohol Use: Occasionally Substance Use Type: None Smoking Status (MU): Never Smoked Tobacco - Immunization History Most Recent Influenza Vaccination: NOT CURRENT Vaccination Up to Date: Yes Review of Systems All Other Systems Reviewed And Are Negative: Yes Constitutional: Positive: Fever, Chills, Fatigue ENT: Positive: Sore Throat, Ear Ache, Nasal Discharge, Sinus Congestion, Sinus Pain/Tenderness Respiratory: Positive: Cough Gastrointestinal: Positive: Negative Motor: Positive: Negative Neurological: Positive: Negative Psychological: Positive: Negative Is Patient Immunocompromised?: No Physical Exam Triage Information Reviewed: Yes Appearance: No Pain Distress, Well-Nourished, Ill-Appearing Vital Signs: Initial Vital Signs Temp 97.6 F 05/16/19 17:56 Pulse 85 05/16/19 17:56 Resp 16 05/16/19 17:56 BP 131/84 05/16/19 17:56 Pulse Ox 100 05/16/19 17:56 Vital Signs Reviewed: Yes Eyes: Positive: Conjunctiva Clear, Other: - emoi ENT: Positive: Pharynx normal, TMs normal, Sinus tenderness - b/l frontal mild. Negative: Pharyngeal erythema, TM bulging, TM dull, TM red, Tonsillar swelling , Tonsillar exudate, Uvula midline Neck: Positive: Supple, No Lymphadenopathy, Tenderness @ - submand b/l Respiratory: Positive: Chest non-tender, Lungs clear, Normal breath sounds, No respiratory distress, No accessory muscle use. Negative: Respiratory distress, Crackles, Rhonchi, Stridor, Wheezing Cardiovascular: Positive: RRR, No Murmur Musculoskeletal Exam: Normal Neurological: Positive: Alert Throat Pain/Nasal Course/Dx - Course Course Of Treatment: negative flu. Viral URI - Increase fluid intake - Over the counter medications as needed for symptoms, including motrin/ tylenol for pain, body aches, fever - Folllow up with primary physician if no improvement within 2-3 days - Return for possible antibiotics if symptoms last longer than 7 days - Differential Dx/Diagnosis Differential Diagnosis/HQI/PQRI: Otitis Media, Pharyngitis, URI Provider Diagnosis: Viral URI Discharge ED - Sign-Out/Discharge Documenting (check all that apply): Patient Departure All imaging exams completed and their final reports reviewed: No Studies - Discharge Plan Condition: Good Disposition: HOME Patient Education Materials: Viral Syndrome (ED) Referrals: Saloni Wise MD [Primary Care Provider] - Additional Instructions: - Increase fluid intake - Over the counter medications as needed for symptoms, including motrin/ tylenol for pain, body aches, fever - Folllow up with primary physician if no improvement within 2-3 days - Return for possible antibiotics if symptoms last longer than 7 days - Billing Disposition and Condition Condition: GOOD Disposition: Home
[2019-05-16 18:58] LABS: Influenza A Molecular Negative (Negative); Influenza B Molecular Negative (Negative)
== END 2019-05-16 19:05 | disposition home or self-care (01) ==
LOC: UCCORT 17:38
DX: J06.9 Acute upper respiratory infection, unspecified (principal); R53.83 Other fatigue
CPT/HCPCS: 99211; G0463